=== PATIENT | female | born 1995 | race African-American/Black ===

== ENCOUNTER 2019-07-21 09:14 | Outpatient (CLI) | payer OTHER, SELFPAY ==
--- NOTE | ~2019-07-21 | CT_ITS ---
EXAMINATION: CT foot RT wo con, CT foot LT wo con DATE: 07/21/2019 10:20 INDICATION: Instability at the bilateral feet. TECHNIQUE: 1. High resolution computed tomography (CT) of the right foot was performed without intravenous contr ast. Additional sagittal and coronal reconstructions were performed. Automated exposure control and i terative reconstruction technique were employed. The dose-length product was 495.54 mGy-cm. 2. High resolution CT of the left foot was performed without intravenous contrast. Additional sagitta l and coronal reconstructions were performed. Automated exposure control and iterative reconstruction technique were employed. The dose-length product was 270.59 mGy-cm. COMPARISON: None FINDINGS: Right foot: Although not diagnostically evaluated on nonweightbearing imaging there appears to be pes planus with collapse of the longitudinal arch and plantar rotation of the axis of the calcaneus relative to the axis of the first metatarsal. 30 degree hallux valgus. No acute fractures. There are few tiny calcifi c densities situated between the tibial plafond and in the shallow concavity at the posterior medial aspect of the talar dome. The well-corticated concavity approximately 2.2 cm AP by 1.3 cm medial to l ateral. Likely representing a chronic collapsed osteochondral lesion with secondary fragmentation of the osteochondral lesion and secondary degenerative cystic change underlying the concavity. Mild oste oarthritis at the tibiotalar and talonavicular and first metatarsophalangeal joints. Synchondrosis be tween the lateral tubercle at the posterior talus and an os trigonum. Soft tissues are unremarkable w ith no ankle joint effusion. Left foot: Suggestion of less severe pes planus at the left foot. 45 degree hallux valgus. Similarly there is a synchondrosis between a larger os trigonum in the posterior talus with additional small intervening o ssicle. Mild cystic change at the os trigonum which can be seen in the setting of posterior ankle imp ingement. No fracture or osteochondral lesions. Mild osteoarthritis at the tibiotalar, subtalar and f irst metatarsophalangeal joints. 1.7 x 1.3 x 0.9 cm fluid attenuation likely ganglion cyst overlying the lateral malleolus. Soft tissues are otherwise unremarkable with no ankle joint effusion. IMPRESSION: 1. 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 2. Mild right and moderate to severe left hallux valgus. 3. 1.7 x 1.3 x 0.9 cm likely ganglion cyst overlying the lateral malleolus. 4. 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 5. Mild polyarticular osteoarthritis at the bilateral feet and ankles. Reviewed, dictated and finalized at location A. [employer] IMPRESSION: 1. 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 2. Mild right and moderate to severe left hallux valgus. 3. 1.7 x 1.3 x 0.9 cm likely ganglion cyst overlying the lateral malleolus. 4. 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 5. Mild polyarticular osteoarthritis at the bilateral feet and ankles.
== END 2019-07-21 09:15 | disposition home or self-care (01) ==
LOC: ANHIMG 09:21
PROVIDERS: Visit Provider Podiatrist Foot & Ankle Surgery
DX: M25.375 Other instability, left foot (principal); M25.374 Other instability, right foot; M20.12 Hallux valgus (acquired), left foot; M67.472 Ganglion, left ankle and foot; M19.072 Primary osteoarthritis, left ankle and foot; M19.071 Primary osteoarthritis, right ankle and foot; Q68.8 Other specified congenital musculoskeletal deformities
CPT/HCPCS: 73700